=== PATIENT | female | born 1935 | race Caucasian/White ===

== ENCOUNTER → 2016-11-08 | Outpatient (CLI) | payer MEDICARE, BC | LOC: MC.RAD 10-30 10:00 | DX: Z12.31 Encounter for screening mammogram for malignant neoplasm of breast (principal) ==

== ENCOUNTER → 2021-01-10 | Outpatient (CLI) | payer MEDICARE, BC | LOC: ZCOL.LAB 19:03 | DX: R06.02 Shortness of breath (principal); R07.9 Chest pain, unspecified ==

== ENCOUNTER → 2021-01-12 | Outpatient (CLI) | payer MEDICARE, BC | LOC: COL.RAD 14:34 | DX: Z01.812 Encounter for preprocedural laboratory examination (principal); J43.9 Emphysema, unspecified; R79.1 Abnormal coagulation profile | CPT/HCPCS: Q9967 ==

== ENCOUNTER → 2021-11-29 | Outpatient (CLI) | payer MEDICARE, BC | LOC: COL.PUL 11-27 08:50 | DX: J44.9 Chronic obstructive pulmonary disease, unspecified (principal) ==

== ENCOUNTER 2021-12-02 07:01 | Emergency (ER) | payer MEDICARE, BC ==
[~2021-12-02] VITALS: Ht 152.4 cm; Wt 35.0 kg
[2021-12-02 07:02] VITALS: TEMP 97.8
[2021-12-02 07:21] LABS: BASO # 0.1 K/mm3 (0.0-0.2); BASO % 1.3 % (0.0-2.0); EOS # 0.2 K/mm3 (0.0-0.7); EOS % 2.5 % (0.0-4.0); GRAN # 5.5 K/mm3 (1.4-6.5); GRAN % 63.9 % (42.2-75.2); HEMATOCRIT 41.6 % (37.0-47.0); HEMOGLOBIN 13.7 g/dl (12.5-16.0); LYMPH # 2.2 K/mm3 (1.2-3.4); LYMPH % 26.1 % (20.0-51.0); MEAN CELL VOLUME 98 fl (80.0-100.0); MEAN CORPUSCULAR HEMOGLOBIN 32 pg (27-31); MEAN CORPUSCULAR HGB CONC 33 g/dl (33.0-37.0); MEAN PLATELET VOLUME 10.1 fl (7.4-10.4); MONO # 0.5 K/mm3 (0.1-0.6); MONO % 5.8 % (1.7-9.3); PLATELET COUNT 237 K/mm3 (130-400); RED BLOOD COUNT 4.23 M/mm3 (4.10-5.30); REDCELL DISTRIBUTION WIDTH-CV 13.2 % (11.5-14.5)
[2021-12-02 07:41] LABS: ALBUMIN 3.3 gm/dL (3.4-4.8); BILIRUBIN,TOTAL 0.4 mg/dL (0.2-1.2); CREATININE, serum 0.61 mg/dL (0.57-1.11); POTASSIUM 3.6 mmol/L (3.5-4.5); TOTAL PROTEIN 5.6 gm/dL (6.2-8.1)
[2021-12-02 07:47] LABS: TROPONIN-I 0.012 ng/mL (0.00-0.033)
[2021-12-02 09:25] VITALS: BP 117/71; PULSE 82
== END 2021-12-02 09:25 | disposition short-term general hospital (02) ==
LOC: COL.ER 07:01
PROVIDERS: Emergency Medicine
DX: R42 Dizziness and giddiness (principal); Z79.01 Long term (current) use of anticoagulants
CPT/HCPCS: J1885; J2405; J2550; J2765; J3360; J7040